=== PATIENT | female | born 1990 | race African-American/Black ===

== ENCOUNTER 2018-10-26 10:31 | Inpatient (IN) ==
[2018-10-26 13:54] LABS: Basophils % 0.1 % (0.0-0.8); Immature Granulocytes % 0.3 %; Immature Granulocytes Absolute 0.03 #; Lymphocytes # 0.6 10*3/uL (1.4-4.0); Lymphocytes % 7.1 % (21.3-54.2); Mean Corpuscular HGB Conc 25.1 GM/DL (32-36); Mean Corpuscular Hemoglobin 16 PG (27-34); Mean Corpuscular Volume 61.6 FL (87-102); Mean Platelet Volume 9.8 FL (9.6-12.0); Monocytes # 0.6 10*3/uL (0.11-0.8); Monocytes % 6.1 % (1.7-12.7); Neutrophils # 7.8 10*3/uL (1.4-7.4); Neutrophils % 86.4 % (38.7-73.9); Platelet Count 626 T/CUMM (130-400); Red Blood Count 2.84 MC/CUMM (3.8-5.5); Red Cell Distribution Width 23.9 % (9.3-17.3)
[2018-10-26 13:57] LABS: INR 1.1; PT Patient Result 11.4 SECS; Partial Thromboplastin Time 23.7 SECS (0-40)
[2018-10-26 13:59] LABS: Hemoglobin 4.4 GM/DL (12.0-16.0)
[2018-10-26 14:00] LABS: Alanine Aminotransferase 19 U/L (13-56); Albumin 3.6 G/DL (3.4-5.0); Alkaline Phosphatase 45 U/L (45-117); Aspartate Amino Transferase 15 U/L (0-37); Blood Urea Nitrogen 8 MG/DL (7-18); Calcium 8.3 MG/DL (8.5-10.1); Glucose 98 MG/DL (74-106); Potassium 3.8 MMOL/L (3.5-5.1); Sodium 136 MMOL/L (136-145); Total Protein 8.1 G/DL (6.4-8.3); Troponin I < 0.015 NG/ML (0.00-0.045)
[2018-10-26 14:17] LABS: Hematocrit 17.5 VOL% (35.7-47.0)
[2018-10-26 14:29] LABS: Hypochromasia 3+; Microcytosis 2+
[2018-10-26 14:30] LABS: Platelet Estimate Increased; Target Cells Few
[2018-10-26] MEDS ORDERED: ACETAMINOPHEN 325 MG TABLET PO PRN (15:21)
[2018-10-26] MEDS ORDERED: ONDANSETRON 4 MG/2 ML VIAL IV PRN (15:21)
[2018-10-26] MEDS ORDERED: SODIUM CHLORIDE 0.9% 1,000 ML IV SCH (15:30)
[2018-10-26] MEDS ORDERED: SODIUM CHLORIDE 0.9% 1,000 ML IV PRN (15:33)
[2018-10-26] MEDS ORDERED: diphenhydrAMINE CAP 25 MG CAPSULE PO PRN (16:00)
[2018-10-26 16:41] LABS: % Iron Saturation 13.2 % (18-50); Ferritin 3.8 ng/ml (8-252)
[2018-10-26 17:18] LABS: Immature Granulocytes % 0.5 %; Immature Granulocytes Absolute 0.04 #; Lymphocytes # 0.9 10*3/uL (1.4-4.0); Mean Corpuscular HGB Conc 25.6 GM/DL (32-36); Mean Corpuscular Hemoglobin 16 PG (27-34); Mean Corpuscular Volume 61.4 FL (87-102); Mean Platelet Volume 9.7 FL (9.6-12.0); Monocytes % 0.4 % (1.7-12.7); NRBC # 0.02 10*3/uL; Neutrophils # 7.2 10*3/uL (1.4-7.4); Neutrophils % 88.1 % (38.7-73.9); Platelet Count 621 T/CUMM (130-400); White Blood Count 8.2 T/CUMM (4-12)
[2018-10-26 17:22] LABS: Hematocrit 17.2 VOL% (35.7-47.0); Hemoglobin 4.4 GM/DL (12.0-16.0)
[2018-10-26 17:49] LABS: Vitamin B12 755 PG/ML (211-911)
[2018-10-26 17:58] LABS: Hypochromasia 3+; Microcytosis 2+; Target Cells Few
[2018-10-26 17:59] LABS: Platelet Estimate Increased
[2018-10-26 18:28] LABS: Sedimentation Rate-Westergren 45 MM/HR (0-20)
[2018-10-26] MEDS: ACETAMINOPHEN 500 MG TABLET PO PRN (19:46)
[2018-10-26 21:26] LABS: Apearance,Urine CLOUDY (Clear); Bilirubin,Urine Negative (Negative); Blood, Urine Negative (Negative); Glucose,Urine (UA) Negative (Negative); Ketones,Urine Negative (Negative); Mucus,Urine Occasional /LPF (Occasional); Nitrite,Urine Negative (Negative); Protein,Urine Negative; RBC,Urine 1 /HPF (0-4); Urine Color Amber (Yellow); Urine Specific Gravity 1.012 (1.001-1.035); WBC,Urine 13 /HPF (0-6)
[2018-10-26 21:31] LABS: Barbiturates Screen,Urine Negative (Negative); Benzodiazepines Screen,Urine Negative (Negative); Cannabinoid Screen,Urine Negative (Negative); Opiate Screen,Urine Negative (Negative); Phencyclidine Screen,Urine Negative (Negative)
[2018-10-27 01:24] LABS: Hematocrit 20.6 VOL% (35.7-47.0)
[2018-10-27 01:34] LABS: Hemoglobin 5.8 GM/DL (12.0-16.0)
[2018-10-27 04:32] LABS: Basophils % 0.2 % (0.0-0.8); Hematocrit 21.4 VOL% (35.7-47.0); Immature Granulocytes % 1.6 %; Immature Granulocytes Absolute 0.31 #; Lymphocytes # 0.8 10*3/uL (1.4-4.0); Lymphocytes % 4.2 % (21.3-54.2); Mean Corpuscular HGB Conc 27.6 GM/DL (32-36); Mean Corpuscular Hemoglobin 19 PG (27-34); Mean Corpuscular Volume 67.7 FL (87-102); Mean Platelet Volume 10.1 FL (9.6-12.0); Monocytes # 0.2 10*3/uL (0.11-0.8); Monocytes % 1.2 % (1.7-12.7); Neutrophils # 17.5 10*3/uL (1.4-7.4); Neutrophils % 92.8 % (38.7-73.9); Platelet Count 439 T/CUMM (130-400); Red Blood Count 3.16 MC/CUMM (3.8-5.5); Red Cell Distribution Width 27.4 % (9.3-17.3); White Blood Count 18.8 T/CUMM (4-12)
[2018-10-27 04:40] LABS: Hemoglobin 5.9 GM/DL (12.0-16.0)
[2018-10-27 05:15] LABS: Band Neutrophils 2 % (0-10); Hypochromasia 2+; Lymphocytes 4 % (20-55); Microcytosis 2+; Ovalocytes Few; Segmented Neutrophils 93 % (50-85); Total Cells Counted 100
[2018-10-27 05:16] LABS: Platelet Estimate Increased; Target Cells Slight; Tear Drop Cells Few
[2018-10-27 05:17] LABS: Polychromasia Slight
[2018-10-27] MEDS: PANTOPRAZOLE 40 MG TABLET PO SCH (08:33)
[2018-10-27] MEDS: cefTRIAXone 1,000 MG in SYRINGE 1 EACH IV SCH (10:17)
[2018-10-27 10:37] LABS: Hemoglobin A1 (Alkaline) 98.3 % (96.5-98.5); Hemoglobin A2 (Alkaline) 1.7 % (1.5-3.5)
[2018-10-27] MEDS ORDERED: SODIUM CHLORIDE 0.9% 1,000 ML IV PRN (11:40)
[2018-10-27] MEDS: ACETAMINOPHEN 500 MG TABLET PO PRN (17:34)
[2018-10-27 22:08] LABS: Hematocrit 25.4 VOL% (35.7-47.0)
[2018-10-27 22:18] LABS: Hemoglobin 7.6 GM/DL (12.0-16.0)
[2018-10-28 05:25] LABS: Basophils # 0.1 10*3/uL (0.0-0.2); Basophils % 0.2 % (0.0-0.8); Eosinophils % 0.1 % (0.00-10.9); Hematocrit 27.1 VOL% (35.7-47.0); Hemoglobin 7.9 GM/DL (12.0-16.0); Immature Granulocytes % 0.6 %; Immature Granulocytes Absolute 0.15 #; Lymphocytes # 0.7 10*3/uL (1.4-4.0); Lymphocytes % 2.8 % (21.3-54.2); Mean Corpuscular HGB Conc 29.2 GM/DL (32-36); Mean Corpuscular Hemoglobin 21 PG (27-34); Mean Corpuscular Volume 71.1 FL (87-102); Mean Platelet Volume 10.2 FL (9.6-12.0); Monocytes # 1.5 10*3/uL (0.11-0.8); Monocytes % 5.7 % (1.7-12.7); Neutrophils % 90.6 % (38.7-73.9); Platelet Count 332 T/CUMM (130-400); Red Blood Count 3.81 MC/CUMM (3.8-5.5); Red Cell Distribution Width 28.3 % (9.3-17.3); White Blood Count 26.4 T/CUMM (4-12)
[2018-10-28 05:40] LABS: Calcium 8.1 MG/DL (8.5-10.1); Potassium 3.4 MMOL/L (3.5-5.1)
[2018-10-28 05:53] LABS: Band Neutrophils 2 % (0-10); Hypochromasia 1+; Lymphocytes 3 % (20-55); Microcytosis 1+; Ovalocytes Slight; Platelet Estimate Adequate; Segmented Neutrophils 92 % (50-85); Total Cells Counted 100
[2018-10-28 08:12] VITALS: BP 101/56
[2018-10-28] MEDS ORDERED: LEVOFLOXACIN 500 MG TABLET PO SCH (09:30)
[2018-10-28] MEDS ORDERED: POTASSIUM CHLORIDE 20 MEQ TABLET PO SCH (09:30)
[2018-10-28] MEDS: PANTOPRAZOLE 40 MG TABLET PO SCH (09:42)
[2018-10-28] MEDS: cefTRIAXone 1,000 MG in SYRINGE 1 EACH IV SCH (09:42)
== END 2018-10-28 12:35 | disposition home or self-care (01) | DRG 812 ==
LOC: N.ED 10:31 → N.EDINP 15:11 → SUATTDRO 15:11 → N.4E 16:15
PROVIDERS: ADMIT Internal Medicine; ATTEND Internal Medicine